=== PATIENT | male | born 1960 | race Caucasian/White ===

== ENCOUNTER → 2019-03-22 | Outpatient (CLI) | payer OTHER | LOC: COL.RAD 08:10 | DX: C61 Malignant neoplasm of prostate (principal); R59.9 Enlarged lymph nodes, unspecified; K76.0 Fatty (change of) liver, not elsewhere classified | CPT/HCPCS: A9503; Q9967 ==

== ENCOUNTER 2019-04-03 15:42 | Inpatient (IN) | payer OTHER ==
[~2019-04-03] VITALS: Ht 177.8 cm; Wt 84.9 kg
[2019-04-28] VITALS (15 sets, daily range): BP systolic 123–164; BP diastolic 67–89; PULSE 50–84; TEMP 97.7–98.6
[2019-04-28] MEDS ORDERED: ZESTRIL40 MG PO (05:43)
[2019-04-28] MEDS ORDERED: TENORMIN 5050 MG/TAB PO (05:43)
--- NOTE | 2019-04-28 06:06 | NUR ---
The patient ambulated back to [place] [facility] independently using a steady gait and appeared to tolerate the activity well. Vital signs obtained. Consent signed. 18G IV started in right hand with one stick, LR infusing without difficulty. Blood obtained from IV start for re-type per protocol. Heart Reg. Lungs clear. Bowel sounds audible. Call light is within reach. brought back to be at his bedside. The patient denies any further needs at this time. Will continue to monitor the patient.
--- NOTE | 2019-04-28 07:07 | NUR ---
The patient was taken back to the operating room via cart at this time. The patient's chart was taken with him and his belongings were taken to the recovery room and will follow the patient when he is transferred to his room post operatively. The patient's was instructed to go back to the waiting room so she can receive updates from the operating room when they officially start the surgery and hourly after that.
--- NOTE | 2019-04-28 12:05 | NUR ---
RECEIVED PATIENT FROM PACU VIA BED, ACCOMPANIED BY PACU NURSE. FAMILY (x3 MEMBERS) ALREADY IN ROOM WAITING. DENIES CHEST PAIN/SHORTNESS OF BREATHE/NAUSEA/DIZZINESS/NUMBNESS. DRESSING TO RAJ DRAIN CLEAN/DRY/INTACT, OBSERVED DRAIN BULB COMPRESSED WITH RED DRAINAGE OBSERVE. FLORES TO DEPENDENT DRAINAGE WITH LIGHT RED COLORED URINE WITH SMALL CLOT/TISSUE DEBRIS OBSERVED IN TUBING. PATIENT REPORTS URGE TO VOID, PATIENT INFORMED URGE COMPLAINT IS NORMAL.
--- NOTE | 2019-04-28 13:39 | NUR ---
OBSERVED ON ENTERING ROOM, PATIENT HAD REPOSITIONED SELF ONTO LEFT SIDE, RESTING WITH EYES CLOSED, DOES NOT AROUSE WHEN ROOM ENTERED, CONTINUES AT BEDSIDE.
--- NOTE | 2019-04-28 17:09 | NUR ---
PATIENT BACK TO BED AFTER AMBULATING IN PLACE AT BEDSIDE. AT BEDSIDE. DENIES ANY COMPLAINTS AT THIS TIME. TOLERATING PO FLUID INTAKE AT THIS TIME. IV FLUIDS INFUSING WITH NO PROBLEMS. CALL LIGHT AND WATER PITCHER WITH IN REACH. BED IN LOW POSITION.
--- NOTE | 2019-04-28 18:25 | NUR ---
DENIES NAUSEA AFTER CLEAR LIQUID SUPPER, DENIES PASSING FLATUS, DENIES ABD BLOATING. NO OTHER NEEDS REPORTED CURRENTLY. FAMILY AT BEDSIDE.
--- NOTE | 2019-04-28 19:45 | NUR ---
Pt. laying in bed with at bedside. Pt. is A&OX3, assessment complete. IV to rt. hand patent, IV fluids infusing per orders. EDDA noted with reddish drainage. Five abd. lap sites noted, with swiftset, edges well approximated. Pt. denies pain or other needs, call light within reach.
[2019-04-29 06:46] LABS: BASO % 0.3 % (0.0-2.0); EOS % 0.1 % (0-4.0); GRAN # 10.9 (1.4-6.5); GRAN % 76.8 % (42.2-75.2); HEMATOCRIT 38.3 % (42.0-52.0); LYMPH # 1.6 (1.2-3.4); LYMPH % 11.5 % (20.0-51.0); MEAN CELL VOLUME 99 fl (80.0-100.0); MEAN CORPUSCULAR HEMOGLOBIN 33 pg (27.0-31.0); MEAN CORPUSCULAR HGB CONC 34 g/dl (33.0-37.0); MEAN PLATELET VOLUME 11.3 fl (7.4-10.4); MONO # 1.5 (0.1-0.6); MONO % 10.5 % (1.7-9.3); PLATELET COUNT 298 K/mm3 (130-400); RED BLOOD COUNT 3.89 M/mm3 (4.20-5.60); REDCELL DISTRIBUTION WIDTH-CV 13.1 % (11.5-14.5)
[2019-04-29 07:04] LABS: CALCIUM 8.3 mg/dL (8.4-10.2); CREATININE, serum 0.96 (0.66-1.25); POTASSIUM 4.4 mmol/L (3.4-5.0)
--- NOTE | 2019-04-29 07:30 | NUR ---
Patient resting in bed at this time, at bedside. Patient is alert and oriented, answers questions appropriately. Mcdonald in place per order, draining pale yellow urine, fair amount of sediment/tissue in urine. EDDA drain to left abodmen in place, scant amount of bloody drainage present. Patient denies pain or nausea at this time, call light within reach.
[2019-04-29 07:39] VITALS: BP 140/81; PULSE 84; TEMP 98
[2019-04-29 11:54] VITALS: BP 149/86; PULSE 64; TEMP 98.2
--- NOTE | 2019-04-29 12:15 | NUR ---
Plan: Return home with [place]. Assess: SW met with patient and in room. Patient gave permissiont to speak in front of . Patient denies the use of any DME. Patient denies the use or need for HHS. Patient reports that prior to this stay he was fully ADL and driving. Patient reports DPOA at and EMR contact . Patient reports that [facility] where they obtain thier medications both short and long. Patient indicated the PCP is Dr. Gaspar with no upcoming appointments. Action: SW educated on resources and services. No additional needs identified. to help transport home.
--- NOTE | 2019-04-29 15:30 | NUR ---
EDDA drain removed per order. Stitch securing drain was removed, drain removed with no complications, patient tolerated procedure well. Gauze and ABD dressing placed over drain site, patient educated that a significant amount of drainage is normal and instructed on signs and symptoms of site infection. Discharge teaching completed. Discharge instructions re inforced. Leg bag teaching completed. Patient and deny questions or concerns at this time. INT removed, catheter removed intact, hemostasis achieved. Patient confirms all personal belongings are in his posession and is escorted to visitor entrance where he got into a private vehicle.
== END 2019-04-29 18:13 | disposition home or self-care (01) | DRG 708 ==
LOC: INPTSU 04-28 05:22 → SURG 04-28 07:30
PROVIDERS: ADMIT Urology
PROC: 8E0W4CZ Robotic Assisted Procedure of Trunk Region, Percutaneous Endoscopic Approach (ICD-10-PCS; 2019-04-28)
PROC: 07BC4ZZ Excision of Pelvis Lymphatic, Percutaneous Endoscopic Approach (ICD-10-PCS; 2019-04-28)
PROC: 0VT04ZZ Resection of Prostate, Percutaneous Endoscopic Approach (ICD-10-PCS; principal; 2019-04-28 07:30)
DX: C61 Malignant neoplasm of prostate (principal)
CPT/HCPCS: A4314; A9284; J0690; J1100; J1885; J2405; J2704; J3010; J7120

== ENCOUNTER 2019-07-13 05:34 | Day surgery (SDC) | payer OTHER ==
[2019-07-13] VITALS (12 sets, daily range): BP systolic 99–167; BP diastolic 61–97; PULSE 58–99; TEMP 97.6–98.2
[~2019-07-13] VITALS: Ht 177.8 cm; Wt 87.4 kg
[~2019-07-13 05:34] MED LIST: TENORMIN 5050 MG/TAB PO; ZESTRIL40 MG PO
[2019-07-13] MEDS ORDERED: LUPRON5 MG/M2 INJ (05:56)
--- NOTE | 2019-07-13 09:30 | NUR ---
Patient up from OR. Alert and oriented x 3. Assessment complete. Lap sites x 6 with edges well approximated. SCDs to BLE. Tolerating clear liquids without difficulties. Post op VSS. Post op fluids infusing to left hand INT. Denies pain or further needs at this time. Will continue to monitor.
--- NOTE | 2019-07-13 14:59 | NUR ---
Patient up, ambulating in halls with spouse, steady gait.
--- NOTE | 2019-07-13 18:15 | NUR ---
Patient has done well throughout the day. Minimal needs. Has been up ambulating in halls. Continues to deny pain throughout the day. Family remains at bedside. Denies further needs at this time. Will report off to restaurant shift leader.
--- NOTE | 2019-07-14 02:18 | NUR ---
patient doing well tonight. alert and oriented. denies pain. took scheduled medications without issue. x7 lap sites CDI and open to air. no further needs at this time. will continue to monitor.
[2019-07-14 03:32] VITALS: BP 139/78; PULSE 87; TEMP 98
--- NOTE | 2019-07-14 08:20 | NUR ---
Patient up ambulating in halls. Steady gait. Alert and oriented x 3. Shift assessment complete. Lap sites x 3 with edges well approximated. Denies pain or further needs at this time.
[2019-07-14 08:46] VITALS: BP 166/79; PULSE 83; TEMP 97.5
--- NOTE | 2019-07-14 09:48 | NUR ---
Initial visit; Patient thaned [employer] for looking in on him and offering God's blessings.
--- NOTE | 2019-07-14 10:34 | NUR ---
Discharge education provided to patient. Educated on signs and symptoms of infection. Educated on when to call provider, office to call and schedule follow up appointment. All questions answered. INT to left hand discontinued, catheter tip intact. Patient out with family and surgical staff.
== END 2019-07-14 10:30 | disposition home or self-care (01) ==
LOC: SDCO 05:34 → JCC 09:38 → SDCO 11:15
DX: C61 Malignant neoplasm of prostate (principal); C77.9 Secondary and unspecified malignant neoplasm of lymph node, unspecified; I10 Essential (primary) hypertension; F17.210 Nicotine dependence, cigarettes, uncomplicated; C78.6 Secondary malignant neoplasm of retroperitoneum and peritoneum; Z79.899 Other long term (current) drug therapy
CPT/HCPCS: OP; A4314; J0690; J1100; J1885; J2405; J2704; J3010; J7120